=== PATIENT | male | born 1955 | race Caucasian/White ===

== ENCOUNTER 2021-10-17 21:16 | Inpatient (IN) ==
[2021-10-17] MEDS ORDERED: Aspirin 325 MG TABLET PO ONE (21:23)
[2021-10-17] MEDS ORDERED: 0.9 % Sodium Chloride 1,000 ML ONE (21:27)
[2021-10-17] MEDS ORDERED: *HR* Heparin 5,000 UNIT/ML VIAL ONE (21:27)
[2021-10-17] MEDS ORDERED: *HR* Ticagrelor 90 MG TABLET ONE (21:27)
[2021-10-17] MEDS ORDERED: *HR* Metoprolol 5 MG/5 ML VIAL IVP ONE (21:30)
[2021-10-17] MEDS ORDERED: *HR* Ticagrelor 90 MG TABLET PO ONE (21:33)
[2021-10-17] MEDS ORDERED: *HR* Heparin 5,000 UNIT/ML VIAL IVP ONE (21:33)
[2021-10-17 21:34] LABS: Basophils # 0.1 K/mcL (0.0-0.2); Basophils % 0.3 %; Hematocrit 46.3 % (37.5-50.1); Hemoglobin 15.3 g/dL (12.9-16.9); Immature Granulocytes % 0.4 % (0-4); Lymphocytes # 0.9 K/mcL (0.6-4.6); Lymphocytes % 4.9 %; Mean Corpuscular Hemoglobin 27.6 pg (28.0-33.3); Mean Corpuscular Volume 83.6 fL (83.0-100.0); Mean Platelet Volume 10.9 fL (9.4-12.4); Monocytes # 1.5 K/mcL (0.0-1.3); Monocytes % 8.5 %; Neutrophils # 15.3 K/mcL (1.6-8.9); Platelet Count 280 K/mcL (140-400); Red Blood Count 5.54 M/mcL (4.19-5.50); Red Cell Distribution Width 14.3 % (11.5-14.5); Segmented Neutrophils % 85.9 %; White Blood Count 17.8 K/mcL (4.3-11.1)
[2021-10-17] MEDS: Nitroglycerin 0.4 MG TAB.SUBL SL SCH (21:34)
[2021-10-17 21:38] LABS: VBG HCO3 25 mEq/L (21-27); VBG PCO2 41 mmHg (41-51); VBG PH 7.39 pH Units (7.32-7.42); VBG PO2 29 mmHg (25-50)
[2021-10-17] MEDS ORDERED: Heparin 1,000 UNITS/500 mL 1,000 ML ONE (21:44)
[2021-10-17] MEDS ORDERED: 0.9 % Sodium Chloride 2,000 ML ONE (21:44)
[2021-10-17] MEDS ORDERED: *HR* Heparin 10,000 UNIT/10 ML VIAL ONE (21:44)
[2021-10-17] MEDS ORDERED: Nitroglycerin 1,000 MCG/5 ML VIAL IV ONE (21:44)
[2021-10-17] MEDS ORDERED: ISOVUE-370 200 ML INFUS..BTL ONE ×2 (21:44→22:37)
[2021-10-17 21:57] LABS: Albumin 4.4 g/dL (3.5-5.7); Albumin/Globulin Ratio 1.3 (1.1-2.2); Bilirubin,Direct 0.3 mg/dL (0.0-0.2); Bilirubin,Indirect 0.9 mg/dL (0.0-1.0); Bilirubin,Total 1.2 mg/dL (0.3-1.0); Calcium 9.4 mg/dL (8.6-10.3); Globulin 3.3 g/dL (2.4-3.5); Potassium 3.6 mEq/L (3.5-5.1); Total Protein 7.7 g/dL (6.4-8.9); Troponin I 4.35 ng/mL (< 0.04)
[2021-10-17] MEDS ORDERED: *HR* Midazolam HCl 2 MG/2 ML VIAL ONE (21:59)
[2021-10-17] MEDS ORDERED: *HR* FentaNYL (PF) 100 MCG/2 ML VIAL ONE (21:59)
[2021-10-17] MEDS ORDERED: Perflutren Lipid Microsphere 1.3 ML in 0.9 % Sodium Chloride 8.7 ML IVP PRN (22:13)
[2021-10-17] MEDS ORDERED: Tirofiban 12.5 MG/250ML 12.5 MG/250 ML BAG IVC SCH (22:15)
[2021-10-17] MEDS ORDERED: Tirofiban 12.5 MG/250ML 12.5 MG/250 ML BAG ONE (22:22)
[2021-10-17] MEDS ORDERED: Furosemide 40 MG/4 ML VIAL ONE (22:59)
[2021-10-18 04:38] LABS: Basophils # 0.1 K/mcL (0.0-0.2); Basophils % 0.4 %; Hematocrit 42.3 % (37.5-50.1); Hemoglobin 14.5 g/dL (12.9-16.9); Immature Granulocytes % 0.4 % (0-4); Lymphocytes # 1.4 K/mcL (0.6-4.6); Lymphocytes % 8.8 %; Mean Corpuscular HGB Conc 34.3 g/dL (31.6-35.5); Mean Corpuscular Hemoglobin 28.4 pg (28.0-33.3); Mean Corpuscular Volume 82.9 fL (83.0-100.0); Mean Platelet Volume 10.8 fL (9.4-12.4); Monocytes # 1.9 K/mcL (0.0-1.3); Monocytes % 11.3 %; Platelet Count 261 K/mcL (140-400); Red Cell Distribution Width 14.2 % (11.5-14.5); Segmented Neutrophils % 79.1 %; White Blood Count 16.4 K/mcL (4.3-11.1)
[2021-10-18 04:52] LABS: BUN/Creatinine Ratio 10 (6-26); Blood Urea Nitrogen 12 mg/dL (8-23); Calcium 8.6 mg/dL (8.6-10.3); Carbon Dioxide 23 mEq/L (23-29); Chloride 99 mEq/L (98-107); Glucose 259 mg/dL (70-105); Osmolality,Calculated 285 (280-300); Potassium 3.7 mEq/L (3.5-5.1); Sodium 133 mEq/L (136-145); eGFR For African Americans > 60 (> 60); eGFR For Non-African Americans > 60 (> 60)
[2021-10-18] MEDS ORDERED: GLIPIZIDE 10 MG PO PRN (08:05)
[2021-10-18] MEDS: Nitroglycerin 0.4 MG TAB.SUBL SL SCH ×2 (08:32→08:33)
[2021-10-18] MEDS ORDERED: Ondansetron 4 MG/2 ML VIAL IVP PRN ×2 (08:48→15:44)
[2021-10-18] MEDS ORDERED: lisinopriL 5 MG TABLET PO SCH (09:00)
[2021-10-18] MEDS ORDERED: Furosemide 20 MG TABLET PO SCH (09:00)
[2021-10-18] MEDS ORDERED: Aspirin 81 MG TAB.CHEW PO SCH (09:00)
[2021-10-18] MEDS ORDERED: *HR* Ticagrelor 90 MG TABLET PO SCH (09:00)
[2021-10-18] MEDS: Gabapentin 400 MG CAPSULE PO SCH ×4 (10:21→23:41)
[2021-10-18] MEDS ORDERED: Insulin NPH/REG 70/30 100 UNIT/ML (x5UNIT) SUBQ SCH (13:15)
[2021-10-18] MEDS ORDERED: *HR* Dextrose 50 % in Water (Syg) 50 ML SYRINGE IVP PRN ×2 (13:16→15:44)
[2021-10-18] MEDS ORDERED: Dextrose 4 GM Chewable Tablets PO PRN ×4 (13:16→15:44)
[2021-10-18] MEDS ORDERED: D5% in Water 1,000 ML IVC PRN ×2 (13:16→15:44)
[2021-10-18] MEDS ORDERED: Cholecalciferol (D-3) 1,000 UNIT (25MCG) TABLET PO SCH (13:30)
[2021-10-18] MEDS ORDERED: GlipiZIDE 5 MG TABLET PO SCH (13:30)
[2021-10-18] MEDS ORDERED: Insulin LISPRO 300 UNITS/3 ML VIAL SUBQ SCH ×2 (16:30→21:00)
[2021-10-18] MEDS: Insulin LISPRO 300 UNITS/3 ML VIAL SUBQ SCH ×2 (16:32→19:57)
[2021-10-18] MEDS: Metoprolol XL (24 HR) Succ 50 MG TAB.ER.24H PO SCH (20:00)
[2021-10-18] MEDS: GlipiZIDE 5 MG TABLET PO SCH (20:01)
[2021-10-18] MEDS: *HR* Ticagrelor 90 MG TABLET PO SCH (20:01)
[2021-10-18] MEDS ORDERED: traZODone 50 MG TABLET PO SCH (21:00)
[2021-10-18] MEDS ORDERED: Metoprolol XL (24 HR) Succ 50 MG TAB.ER.24H PO SCH (21:00)
[2021-10-18] MEDS: Insulin NPH/REG 70/30 100 UNIT/ML (x5UNIT) SUBQ SCH (21:10)
[2021-10-19] MEDS: Insulin LISPRO 300 UNITS/3 ML VIAL SUBQ SCH ×4 (07:36→19:59)
[2021-10-19] MEDS: Metoprolol XL (24 HR) Succ 50 MG TAB.ER.24H PO SCH ×2 (09:23→19:59)
[2021-10-19] MEDS: Cholecalciferol (D-3) 1,000 UNIT (25MCG) TABLET PO SCH (09:24)
[2021-10-19] MEDS: Gabapentin 400 MG CAPSULE PO SCH ×3 (09:24→19:59)
[2021-10-19] MEDS: Furosemide 20 MG TABLET PO SCH (09:24)
[2021-10-19] MEDS: GlipiZIDE 5 MG TABLET PO SCH (09:25)
[2021-10-19] MEDS: *HR* Ticagrelor 90 MG TABLET PO SCH ×2 (09:25→19:59)
[2021-10-19] MEDS: lisinopriL 5 MG TABLET PO SCH (09:26)
[2021-10-19] MEDS: Insulin NPH/REG 70/30 100 UNIT/ML (x5UNIT) SUBQ SCH ×2 (09:26→19:58)
[2021-10-19] MEDS: Aspirin 81 MG TAB.CHEW PO SCH (09:26)
[2021-10-19] MEDS ORDERED: Metoprolol XL (24 HR) Succ 25 MG TAB.ER.24H PO ONE (10:40)
[2021-10-19] MEDS ORDERED: Nitroglycerin 0.4 MG TAB.SUBL SL PRN (10:42)
[2021-10-20 05:37] LABS: Hemoglobin 13.4 g/dL (12.9-16.9); Mean Corpuscular HGB Conc 32.7 g/dL (31.6-35.5); Mean Corpuscular Hemoglobin 27.4 pg (28.0-33.3); Mean Corpuscular Volume 83.8 fL (83.0-100.0); Mean Platelet Volume 10.8 fL (9.4-12.4); Platelet Count 262 K/mcL (140-400); Red Blood Count 4.89 M/mcL (4.19-5.50); Red Cell Distribution Width 14.6 % (11.5-14.5); White Blood Count 12.2 K/mcL (4.3-11.1)
[2021-10-20 06:14] LABS: Blood Urea Nitrogen 18 mg/dL (8-23); Calcium 8.5 mg/dL (8.6-10.3); Carbon Dioxide 24 mEq/L (23-29); Chloride 98 mEq/L (98-107); Glucose 262 mg/dL (70-105); Osmolality,Calculated 285 (280-300); Potassium 3.7 mEq/L (3.5-5.1); Sodium 132 mEq/L (136-145); Troponin I 5.08 ng/mL (< 0.04)
[2021-10-20 07:00] LABS: BUN/Creatinine Ratio 16 (6-26); eGFR For African Americans > 60 (> 60); eGFR For Non-African Americans > 60 (> 60)
[2021-10-20] MEDS: Aspirin 81 MG TAB.CHEW PO SCH (08:08)
[2021-10-20] MEDS: lisinopriL 5 MG TABLET PO SCH (08:08)
[2021-10-20] MEDS: Furosemide 20 MG TABLET PO SCH (08:08)
[2021-10-20] MEDS: Metoprolol XL (24 HR) Succ 50 MG TAB.ER.24H PO SCH (08:08)
[2021-10-20] MEDS: Gabapentin 400 MG CAPSULE PO SCH (08:08)
[2021-10-20] MEDS: Cholecalciferol (D-3) 1,000 UNIT (25MCG) TABLET PO SCH (08:09)
[2021-10-20] MEDS: Insulin LISPRO 300 UNITS/3 ML VIAL SUBQ SCH ×2 (08:09→11:21)
[2021-10-20] MEDS: *HR* Ticagrelor 90 MG TABLET PO SCH (08:09)
[2021-10-20 10:35] VITALS: BP 120/81; PULSE 90; TEMP 97.9; O2SAT 94
[2021-10-20] MEDS: Insulin NPH/REG 70/30 100 UNIT/ML (x5UNIT) SUBQ SCH (11:24)
[2021-10-20] MEDS ORDERED: Insulin LISPRO 300 UNITS/3 ML VIAL SUBQ SCH ×2 (12:13)
== END 2021-10-20 15:02 | disposition home or self-care (01) | DRG 247 ==
LOC: EMEROOARM 21:16 → ICNU 22:06 → 2NENU 10-18 17:53
PROVIDERS: ADMIT Internal Medicine Cardiovascular Disease; ATTEND Internal Medicine Cardiovascular Disease